=== PATIENT | female | born 1990 | race Caucasian/White ===

== ENCOUNTER 2019-08-31 18:30 | Emergency (ER) | payer OTHER, SELFPAY ==
--- NOTE | ~2019-08-31 | XR_ITS ---
EXAMINATION: XR clavicle LT, XR shoulder LT min 2V EXAM DATE: 08/31/2019 19:05 INDICATION: Initial encounter following injury one week ago, with persistent pain of the left should er, clavicle. TECHNIQUE: The following left shoulder projections obtained: frontal projection with internal rotatio n, frontal projection with external rotation, Grashey, and scapular Y view (4+ views). 2 frontal pro jections left clavicle with different degrees of tilt. There are no prior studies for comparison. FINDINGS: No evidence of left shoulder rotator cuff calcific tendinosis. Unremarkable left glenohu meral and acromioclavicular joints. There are no acute fractures or dislocations identified. There is no subcutaneous gas. The soft tissue is unremarkable. There are no radiopaque foreign bodies. IMPRESSION: 1. Unremarkable left shoulder, clavicle exam. Reviewed, dictated and finalized at location A. IMPRESSION: 1. Unremarkable left shoulder, clavicle exam.
[2019-08-31 18:38] VITALS: BP 138/86; PULSE 88; RESP 20; TEMP 37.1; O2SAT 100
--- NOTE | 2019-08-31 18:54 | ED.UPPEXIN ---
HPI - Extremity Injury (Upper) General Chief Complaint: Extremity Injury, Upper Stated Complaint: left clavicle pain Time Seen by Provider: 08/31/19 18:54 Source: patient and RN notes reviewed History of Present Illness HPI narrative: Patient is a 29-year-old female who presents the urgent care with complaints of 1 week history of left clavicle pain. Patient states that she tripped over her own feet while getting off the couch and fell face forward. Patient states that she has had pain to the left clavicle and through to the left shoulder since the incident. Patient has been using Tylenol, icy hot, tramadol and ice for pain. No other acute complaints or injuries. No acute distress noted. Patient read the plan of care. Related Data Home Medications Medication Instructions Recorded Confirmed No Home Medications 08/31/19 08/31/19 Allergies Allergy/AdvReac Type Severity Reaction Status Date / Time No Known Allergies Allergy Unknown Verified 08/31/19 18:44 Review of Systems Review of Systems: Narrative: CONSTITUTIONAL: Denies fever, chills, or sweats. EYES: Denies visual changes, redness, or discharge. ENT: Denies rhinorrhea, congestion, sore throat, or otalgia. CARDIOVASCULAR: Denies chest pain, palpitations, or edema. RESPIRATORY: Denies cough or dyspnea. GASTROINTESTINAL: Denies abdominal pain, nausea, vomiting, or diarrhea. GENITOURINARY: Denies dysuria or hematuria. SKIN: Denies rash or itching. MUSCULOSKELETAL: Reports of left clavicle pain radiating through to the left shoulder NEUROLOGIC: Denies headache, numbness, or weakness. All other systems reviewed are negative, except as documented in HPI. PMFSH Comments At the time of my signature, I reviewed and agree with the nursing past medical, surgical, social, and family history. There is no relevant family history pertinent to the patient complaint. Exam Narrative: Exam Narrative: GENERAL: This is a well-nourished, well-developed patient, in no apparent distress. HEAD: normocephalic, atraumatic. EYES: PERRL. Sclera clear/white. Vision is grossly intact. EARS: External ears normal NOSE: External nose normal with no obvious nasal discharge, nares without redness, no rhinorrhea. THROAT: Mucous membranes moist NECK: Neck supple SKIN: warm, intact with no suspicious lesions or rash, good texture and turgor. NEURO: awake, alert, and oriented to person, place and time. There were no obvious focal neurologic abnormalities. EXTREMITIES: No obvious crepitus, ecchymosis, edema noted to the left clavicle. Very mild tenderness over the left clavicle. Range of motion to left upper extremity within normal limits. Course Vital Signs Vital signs: Vital Signs Temperature 98.7 F 08/31/19 18:38 Pulse Rate 88 08/31/19 18:38 Respiratory Rate 20 08/31/19 18:38 Blood Pressure 138/86 08/31/19 18:38 Pulse Oximetry 100 08/31/19 18:38 Temperature 98.7 F 08/31/19 18:38 Pulse Rate 88 08/31/19 18:38 Respiratory Rate 20 08/31/19 18:38 Blood Pressure 138/86 08/31/19 18:38 Pulse Oximetry 100 08/31/19 18:38 Reviewed MDM - Extremity Injury (Upper) MDM Narrative Medical decision making narrative: Reviewed x-ray results with the patient. She is aware that the shoulder and clavicle were both unremarkable without any notable deformities or fractures. Advised the patient to continue using Tylenol and ibuprofen as needed for pain. Continue to practice range of motion activity to the left upper extremity. May use ice or heating pad in 20-minute intervals as needed for comfort and pain. If pain continues you may need referral to either an orthopedic or physical therapy. Therefore follow-up with your PCP within 1 week for reevaluation. Differential Diagnosis Differential diagnosis: Likely sprain and strain of wrist, fracture of hand and fracture of clavicle Imaging Data Radiologist's impression: [place] [id number] [place] [id number]
== END 2019-08-31 19:27 | disposition home or self-care (01) ==
PROVIDERS: Emergency Provider Nurse Practitioner Family
DX: M25.512 Pain in left shoulder (principal)
CPT/HCPCS: 73000; 73030; 99213; G0463

== ENCOUNTER 2020-03-28 09:11 | Emergency (ER) | payer OTHER, SELFPAY ==
[2020-03-28 09:22] VITALS: BP 142/81; PULSE 84; RESP 20; TEMP 36.2; O2SAT 98
--- NOTE | 2020-03-28 09:26 | ED.GENADULT ---
HPI - General Adult General Chief complaint: Upper Respiratory Infection Stated complaint: Cough/Coughing Up Some Blood/Chills Time Seen by Provider: 03/28/20 09:26 Source: patient Mode of arrival: ambulatory Limitations: no limitations History of Present Illness HPI narrative: 29-year-old female patient presents to the [facility] with complaints of cough for the past 3 days. Patient states she was worried because this morning when she coughed up a little bit of sputum she saw some streaks of blood in her sputum. Patient denies any fevers but states she has had some body aches and chills. Patient states she has had a little bit of congestion runny nose. Patient denies any shortness of breath but states at times she does have a little bit of chest pain with coughing. Patient was a former smoker but quit about 2 years ago and has had multiple episodes of bronchitis before in the past. Patient states she was tested for Covid about a week ago but states that she did not have any symptoms at that time and tested negative. Related Data Allergies Allergy/AdvReac Type Severity Reaction Status Date / Time No Known Allergies Allergy Unknown Verified 03/28/20 09:38 Review of Systems Review of Systems: Narrative: CONSTITUTIONAL: Denies fever, positive body aches and chills, denies sweats. EYES: Denies visual changes, redness, or discharge. ENT: Positive rhinorrhea, congestion, sore throat, denies otalgia. CARDIOVASCULAR: Denies chest pain, palpitations, or edema. RESPIRATORY: Positive cough, denies dyspnea. GASTROINTESTINAL: Denies abdominal pain, nausea, vomiting, or diarrhea. GENITOURINARY: Denies dysuria or hematuria. SKIN: Denies rash or itching. MUSCULOSKELETAL: Denies back pain, joint pain, or myalgia. NEUROLOGIC: Denies headache, numbness, or weakness. PSYCHIATRIC: Denies anxiety or depression. PMFSH Comments At the time of my signature I agree with nursing past medical history, surgical, social, and family history. There is no relevant family history pertinent to the presenting complaint. Exam Narrative: Exam Narrative: GENERAL: Well-appearing, well-nourished, and in no acute distress. HEAD: Normocephalic, atraumatic. EYES: PERRLA and EOMI. ENT: Nares with erythema and edema noted to the left nare, no rhinorrhea or epistaxis. Mucous membranes moist. Posterior pharynx with slight erythema. No tonsils are present. No exudates or lesions present. Bilateral TMs are clear no erythema or foreign bodies in the canal. NECK: Supple. No lymphadenopathy CHEST: Clear to auscultation. No respiratory distress. Patient able talk in clear complete sentences. No tripoding noted. HEART: Regular rate and rhythm. No murmur heard. Normal peripheral pulses. ABDOMEN: Soft, nontender, nondistended, normal active bowel sounds. EXTREMITIES: Normal range of motion. No edema. SKIN: Warm, dry, no rash. NEURO: No focal deficits. Alert and oriented x3. Course Reevaluation(s) Reevaluation #1: Reevaluated patient after her strep and flu did come back. Notified her that the strep and flu were both negative today. Discussed with patient I think that we should send her for Covid testing. Patient is in agreement with this. Discussed with patient I will send her home with an inhaler, Tessalon Perles as well as daily antihistamine. Discussed with patient that she develops worsening symptoms such as severe chest pain or severe shortness of breath I advised her that the ER for further evaluation. Meanwhile patient needs to stay home to stay quarantined especially while having symptoms. Patient verbalized understanding denies any other questions or concerns at this time. Date: 03/28/20 Time: 09:53 Vital Signs Vital signs: Vital Signs Temperature 36.2 C L 03/28/20 09:22 Pulse Rate 84 03/28/20 09:22 Respiratory Rate 20 03/28/20 09:22 Blood Pressure 142/81 H 03/28/20 09:22 Pulse Oximetry 98 03/28/20 09:22 Temperature 36.2 C L 03/28/20 09:22
== END 2020-03-28 10:00 | disposition home or self-care (01) ==
PROVIDERS: Emergency Provider Nurse Practitioner Family
DX: J06.9 Acute upper respiratory infection, unspecified (principal); R05 Cough; Z20.828 Contact with and (suspected) exposure to other viral communicable diseases; Z87.891 Personal history of nicotine dependence
CPT/HCPCS: 87081; 87804; 87880; 99213; C9803; G0463; U0003

== ENCOUNTER 2020-03-28 10:36 | Outpatient (NON) | payer OTHER, SELFPAY ==
[2020-03-28 23:03] LABS: SARS-CoV-2 RNA PCR Negative
== END 2020-03-28 10:37 ==
LOC: ANHCOVIDDT 10:37
PROVIDERS: Visit Provider Nurse Practitioner Family
DX: J06.9 Acute upper respiratory infection, unspecified (principal); Z20.828 Contact with and (suspected) exposure to other viral communicable diseases
CPT/HCPCS: 87635; C9803; U0003

== ENCOUNTER 2020-08-24 08:28 | Emergency (ER) | payer OTHER, SELFPAY ==
[2020-08-24 08:37] VITALS: BP 156/84; PULSE 77; RESP 20; TEMP 37.5; O2SAT 100
--- NOTE | 2020-08-24 09:15 | ED.URI ---
HPI - URI/Sore Throat General Chief Complaint: Upper Respiratory Infection Stated Complaint: Throat complaint Time Seen by Provider: 08/24/20 08:29 Source: patient Mode of arrival: ambulatory Limitations: no limitations History of Present Illness HPI Narrative: 30-year-old female presents to [facility] with complaints of sore throat and nasal congestion for the past 3 days. Patient also reports intermittent sneezing. Patient does take Tequila daily for seasonal allergies. Patient denies fever, bodyaches, chills, cough, runny nose, shortness of breath or wheezing. MD elicited complaint: sore throat and nasal congestion Onset (ago): day(s) (3) Consistency: constant Able to tolerate fluids by mouth: Yes Exacerbating factors: nothing Associated symptoms: denies other symptoms Related Data Allergies Allergy/AdvReac Type Severity Reaction Status Date / Time No Known Allergies Allergy Unknown Verified 08/24/20 08:46 Review of Systems Constitutional: Constitutional: Denies chills, Denies fatigue, Denies fever(s) and Denies weakness ENT: Denies dysphagia, Denies vertigo, Denies dizziness, Denies epistaxis, Reports nasal congestion and Reports sore throat Cardiovascular: Cardiovascular: Denies chest pain, Denies rapid heart rate, Denies radiating jaw, neck or arm pain and Denies slow heart rate Respiratory: Respiratory: Denies chest congestion, Denies cough, Denies dyspnea and Denies wheezing Gastrointestinal: Gastrointestinal: Denies abdominal pain, Denies constipation, Denies diarrhea, Denies nausea and Denies vomiting Integumentary/Breasts: Skin/Breast: Denies rash PMFSH Past Medical History Medical History (Updated 08/24/20 @ 09:20 by Sybil Guerra APRN) Seasonal allergic rhinitis Tonsillectomy planned Surgical History Surgical History History of placement of ear tubes Social History Social History (Updated 08/24/20 @ 09:17 by Sybil Guerra APRN) Smoking status: Former smoker Substance use type: marijuana Comments At time of signature, I agree with nursing past medical, surgical, social and family history. There is no relevant family history pertinent to the presenting complaint. Exam Const: General: no acute distress and alert Orientation/consciousness: patient oriented x3 HENMT: Head: normal to inspection Ears: TM's normal bilaterally and EAC's normal Mouth: Yes Normal oral and palatal mucosa present and Yes moist mucous membranes Throat: uvula midline Other: Tonsils are absent. Mild erythema noted to posterior pharynx. Moderate bilateral nasal congestion noted. There is no nasal discharge noted. Neck: Neck: normal visual inspection Resp: Effort & Inspection: normal respiratory effort, not labored and not tachypneic Auscultation: clear to auscultation bilaterally, no rales and no wheezes Cardio: Rate: regular rate, not bradycardic and not tachycardic Rhythm: regular rhythm and regular rhythm Skin: General skin exam: normal color Rashes: no rashes Wounds: no wounds Neuro: General: patient oriented x3, moves all extremities and no meningeal signs Psych: Appearance: grossly normal Mental Status: mental status grossly normal Affect: normal affect Attitude: cooperative Thought content: Yes Normal thought content present Course Vital Signs Vital signs: Vital Signs Temperature 37.5 C 08/24/20 08:37 Pulse Rate 77 08/24/20 08:37 Respiratory Rate 20 08/24/20 08:37 Blood Pressure 156/84 H 08/24/20 08:37 Pulse Oximetry 100 08/24/20 08:37 Temperature 37.5 C 08/24/20 08:37 Pulse Rate 77 08/24/20 08:37 Respiratory Rate 20 08/24/20 08:37 Blood Pressure 156/84 H 08/24/20 08:37 Pulse Oximetry 100 08/24/20 08:37 MDM - URI/Sore Throat MDM Narrative Medical decision making narrative: Patient agrees to continue taking Tequila daily. Patient agrees to take Flonase daily. Patient agrees to take Medrol D
== END 2020-08-24 09:25 | disposition home or self-care (01) ==
PROVIDERS: Emergency Provider Nurse Practitioner Family
DX: J06.9 Acute upper respiratory infection, unspecified (principal); Z87.891 Personal history of nicotine dependence
CPT/HCPCS: 87081; 87880; 99213; G0463